=== PATIENT | female | born 1980 | race African-American/Black ===

== ENCOUNTER 2024-04-18 10:45 | Outpatient (REF) | payer OTHER, SELFPAY ==
[2024-04-18 13:17] LABS: MANUAL DIFF FLAG NO
[2024-04-18 13:35] LABS: Basophils Absolute Auto 0.1 X10*3/uL (0.0-0.2); Basophils Percent Auto 1.4 % (0-2); Eosinophils Absolute Auto 0.1 X10*3/uL (0.0-0.4); Eosinophils Percent Auto 1.8 % (0-4); Hematocrit 26.6 % (37.0-47.0); Hemoglobin 7.3 g/dl (12.0-16.0); Imm Gran Abs Auto 0.02 X10*3/uL (0.00-0.03); Imm Gran Pct Auto 0.4 % (0.0-0.4); Lymphocytes Absolute Auto 2.1 X10*3/uL (1.2-4.9); Lymphocytes Percent Auto 36.8 % (20-40); Mean Corpuscular HGB Conc 27.4 g/dl (31.0-35.0); Mean Corpuscular Hemoglobin 16.8 pg (27.0-33.0); Monocytes Absolute Auto 0.3 X10*3/uL (0.1-1.2); Monocytes Percent Auto 5.5 % (2-11); Neutrophils Absolute Auto 3.1 x10*3/uL (2.0-8.3); Neutrophils Percent Auto 54.1 % (45-73); Platelet Count 398 X10*3/uL (160-400); Red Blood Count 4.35 X10*6/uL (4.20-5.50); Red Cell Distribution Width 21.3 % (11.0-16.0)
[2024-04-18 13:36] LABS: Mean Corpuscular Volume 61.1 fL (80.0-98.0)
[2024-04-18 13:37] LABS: White Blood Count 5.6 X10*3/uL (4.8-10.8)
[2024-04-18 13:51] LABS: Estimated Average Glucose 151 mg/dL; Hemoglobin A1C 99.9688 umol/L; Hemoglobin A1c % 6.9 % (<6.0); Total Hemoglobin (HGBA1C) 1943.8636 umol/L
[2024-04-18 14:01] LABS: Alanine Aminotransferase 31 U/L (0-31); Alkaline Phosphatase 51 U/L (39-117); Anion Gap 9 (12-20); Aspartate Amino Transferase 25 U/L (5-31); Bilirubin Total 0.3 mg/dL (0.0-1.0); Blood Urea Nitrogen 11 mg/dL (9-16); Carbon Dioxide 27 mmol/L (22-29); Chloride 107 mmol/L (96-108); Cholesterol 133 mg/dL (<200); Estimated Glomerular Filt Rate > 60; Glucose Random 176 mg/dL (60-115); HDL Cholesterol 41 mg/dL (>40); LDL Cholesterol Calculated 77 mg/dL (<100); Potassium 3.8 mmol/L (3.3-5.1); Sodium 139 mmol/L (135-145); Total Protein 7.5 g/dL (6.5-8.0); Triglycerides 79 mg/dL (<150)
[2024-04-18 14:18] LABS: Creatinine Urine 203.44 mg/dL; Microalbum/Creatinine Ratio Ur 12.7 ug/mg cr (<30)
[2024-04-18 14:21] LABS: Ferritin 5 ng/mL (10-250)
== END 2024-04-18 10:46 | disposition home or self-care (01) ==
LOC: HO.10HDL 10:45
PROVIDERS: Visit Provider Internal Medicine
DX: D50.8 Other iron deficiency anemias (principal); E11.65 Type 2 diabetes mellitus with hyperglycemia; E78.00 Pure hypercholesterolemia, unspecified; I10 Essential (primary) hypertension
CPT/HCPCS: 36415; 80053; 80061; 82043; 82570; 82728; 83036; 85025

== ENCOUNTER 2024-06-05 10:42 | Outpatient (REF) | payer OTHER, SELFPAY ==
[2024-06-05 13:02] LABS: Estimated Average Glucose 229 mg/dL; Hemoglobin A1C 192.1859 umol/L; Hemoglobin A1c % 9.6 % (<6.0); Total Hemoglobin (HGBA1C) 2365.8973 umol/L
[2024-06-05 13:11] LABS: Anion Gap 9 (12-20); Blood Urea Nitrogen 11 mg/dL (9-16); Calcium 9.2 mg/dL (8.4-10.2); Carbon Dioxide 24 mmol/L (22-29); Chloride 105 mmol/L (96-108); Estimated Glomerular Filt Rate 52; Potassium 4.2 mmol/L (3.3-5.1); Sodium 134 mmol/L (135-145)
[2024-06-05 13:12] LABS: Alanine Aminotransferase 35 U/L (0-31); Albumin Level 3.9 g/dL (3.5-5.0); Alkaline Phosphatase 67 U/L (39-117); Aspartate Amino Transferase 30 U/L (5-31); Bilirubin Total 0.3 mg/dL (0.0-1.0); Total Protein 7.7 g/dL (6.5-8.0)
[2024-06-05 13:18] LABS: Glucose Random 478 mg/dL (60-115)
== END 2024-06-05 10:43 | disposition home or self-care (01) ==
LOC: HO.10HDL 10:42
PROVIDERS: Visit Provider Internal Medicine
DX: Z00.01 Encounter for general adult medical examination with abnormal findings (principal); Z13.1 Encounter for screening for diabetes mellitus; I10 Essential (primary) hypertension; E78.00 Pure hypercholesterolemia, unspecified; D50.8 Other iron deficiency anemias
CPT/HCPCS: 36415; 80053; 83036

== ENCOUNTER → 2024-06-05 11:03 | Outpatient (REF) | payer OTHER, SELFPAY ==
--- NOTE | 2024-06-05 11:06 | CA_ITS ---
Transthoracic Echocardiogram Patient (Last, First, Middle): Giancarlo Manriquez, Gender: Female Date of : 1980 Age: 43 Procedure Date: 06/05/2024 Procedure Type: Transthoracic Echocardiogram Location: OP Height: 160.02 cm Weight: 87.54 kg BSA: 1.90 m2 Heart Rate: bpm BP: 152 / 87 mmHg Maintenance And Repair Worker: [email or web address] Referring MD: Jessica Zamarripa MD Banking Center Manager: Wang Monroy MD Symptoms: HTN Study Quality: Adequate ECG Rhythm: Sinus Conclusions: - 1. Normal LV ejection fraction of 60-65% with mild LVH with grade 1 diastolic dysfunction 2. Normal cardiac valvular Dopplers 3. No gross pericardial effusion Findings Left Ventricle Normal left ventricular size and systolic function. There is mildly increased left ventricular wall thickness. The visually estimated ejection fraction is between 60-65%. Spectral Doppler is indicative of an impaired relaxation filling pattern. E/E prime ratio is <8, consistent with normal filling pressures. Evidence suggests grade I (mild) diastolic dysfunction. Right Ventricle Normal right ventricular cavity size and systolic function. Atria The left atrium is normal in size. There is no evidence of interatrial shunt. The right atrium is normal in size. Aortic Valve The aortic valve structure and function is likely normal. There is no aortic valve stenosis. There is no aortic valve regurgitation. Mitral Valve Normal mitral valve structure and function. There is trace mitral valve regurgitation. There is no mitral valve stenosis. Pulmonic Valve The pulmonic valve is likely normal. There is trace pulmonic valve regurgitation. Tricuspid Valve Normal tricuspid valve structure. Tricuspid regurgitation envelope is inadequate for calculation of right ventricular systolic pressure. Normal right atrial pressure. Great Vessels The pulmonary artery was not well visualized. There is no dilatation of the ascending aorta measuring 3.10 cm. Venous The inferior vena cava is normal in size and collapses greater than 50% with inspiration. Pericardium/Pleural There is no evidence of pericardial effusion. Prior Study Comparison No prior study available for comparison. Measurements 2D Linear Measurements IVSd: 1.23 0.6-0.9/0.6-1.0 cm LVIDd: 3.75 3.9-5.3/4.2-5.9 cm LVIDd Index: 1.97 2.4-3.2/2.2-3.1 cm/m2 LVIDs: 2.35 2.0-3.6 cm LVPWd: 1.20 0.7-1.1 cm LA Diam: 3.20 2.7-3.8/3.0-4.0 cm LAIDs Index: 1.68 1.5-2.3 cm/m2 LV Mass: 190.63 67-162/88-224 g LV Mass Index: 100.33 43-95/49-115 g/m2 LVOT Diam: 2.10 3.0+(-)1.3 cm 2D Systolic Function EF 4C: 67.00 >55% EF 2C: 62.20 >55% EF BiP: 65.20 >55% Mitral Valve MV Pk E: 0.83 MV PK A: 0.87 MV Decel Time: 249.00 E/A: 0.90 E'Lateral: 10.20 E'Medial: 8.38 E/E' Med: 9.90 E/E' Lat: 8.10 PHT: 73.00 MVA PHT: 3.01 Decel Barton: 3.33 Aortic Valve AoV Pk Ian: 1.69 AoV Mn Ian: 1.22 AoV VTI: 0.33 AoV Pk Grad: 11.00 Aov Mn Grad: 7.00 LEOLA Cont.VTI: 2.33 LVOT LVOT Pk Ian: 1.21 LVOT Mn Ian: 0.71 LVOT VTI: 0.23 LVOT Pk Grad: 6.00 LVOT Mn Grad: 2.00 LVOT Diam: 2.10 LVOT Area: 3.46 Diastolic Function MV Pk E: 0.83 MV Pk A: 0.87 E/A: 0.90 E'Medial: 8.38 E/E' Med: 9.90 E' Laterial: 10.20 E/E' Lat: 8.10 Right Ventricle TAPSE (mm): 26.90 TVS' Ian: 12.70 Tricuspid Valve RA Press: 3.00 Great Vessels Aorta Sinus of Valsalva: 2.97 2.0-3.[address] Ridge: 2.38 1.7-3.4 cm Ao Asc: 3.10 2.1-3.4 cm Updated in Other Vendor System with Status of Final Wang Monroy MD electronically signed on 06/05/2024 2:39:18 PM with status of Final
== END ==
LOC: HO.CARD 11:03
PROVIDERS: PCP Internal Medicine; Visit Provider Internal Medicine
DX: I10 Essential (primary) hypertension (principal)
CPT/HCPCS: 93306

== ENCOUNTER → 2024-06-05 11:06 | Outpatient (BNV) | payer OTHER, SELFPAY | PROVIDERS: PCP Internal Medicine; Visit Provider Internal Medicine Cardiovascular Disease | DX: I42.8 Other cardiomyopathies (principal) | CPT/HCPCS: 93306 ==